=== PATIENT | male | born 1975 | race Caucasian/White ===

== ENCOUNTER 2020-04-13 08:05 | Outpatient (CLI) | payer BC | END 2020-04-13 23:59 | disposition home or self-care (01) | LOC: CVU 08:05 | PROVIDERS: ATTEND Internal Medicine Cardiovascular Disease | DX: I08.8 Other rheumatic multiple valve diseases (principal) | CPT/HCPCS: 93306; 93356; 94060; 94726; 94729 ==

== ENCOUNTER 2020-06-14 01:34 | Emergency (ER) | payer BC ==
[~2020-06-14] VITALS: Ht 190.5 cm; Wt 104.1 kg
--- NOTE | 2020-06-14 01:41 | NUR ---
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
--- NOTE | 2020-06-14 02:45 | NUR ---
PT TO ROOM AT 0375
[2020-06-14] MEDS ORDERED: ASPIRIN 81 MG TABLET CHEW ONE (02:52)
[2020-06-14] MEDS ORDERED: ASPIRIN 81 MG TABLET CHEW PO ONE (03:30)
[2020-06-14 03:38] LABS: BASOPHILS # (AUTO) 0.04 x10^3/uL (0-0.1); BASOPHILS % (AUTO) 1 % (0-1); EOSINOPHILS # (AUTO) 0.27 x10^3/uL (0-0.4); EOSINOPHILS % (AUTO) 4 % (1-7); LYMPHOCYTES # (AUTO) 2.57 x10^3/uL (1-3.4); LYMPHOCYTES % (AUTO) 33 % (22-44); MD NO; MEAN CORPUSCULAR HEMOGLOBIN 30.4 pg (27.5-34.5); MEAN CORPUSCULAR HGB CONC 33.5 g/dL (33.2-36.2); MEAN CORPUSCULAR VOLUME 90.9 fL (81-97); MONOCYTES # (AUTO) 0.47 x10^3/uL (0.2-0.8); MONOCYTES % (AUTO) 6 % (2-9); NEUTROPHILS # (AUTO) 4.46 x10^3/uL (1.8-6.8); NEUTROPHILS % (AUTO) 57 % (42-75); PLATELET COUNT 241 x10^3/uL (130-400); RED BLOOD COUNT 5.83 x10^6/uL (4.38-5.82); RED CELL DISTRIBUTION WIDTH 13.7 % (9.4-14.8)
--- NOTE | 2020-06-14 03:38 | NUR ---
PT SITTING IN BED, REMAINS CONNECTED TO CARDIAC, BP AND O2 MONITORS. NO SIGNS OF ACUTE DISTRESS, WATCHING TV WITH HIS AT BEDSIDE. CALL LIGHT REMAINS IN REACH.
[2020-06-14 03:45] LABS: ALBUMIN 4.9 g/dL (3.4-5.0); ANION GAP 7 mmol/L (5-15); CALCIUM 9.7 mg/dL (8.5-10.1); CHLORIDE 104 mmol/L (98-107); CREATININE 1.13 mg/dL (0.7-1.3)
[2020-06-14 03:49] LABS: TROPONIN I < 0.015 ng/mL (0.000-0.045)
--- NOTE | 2020-06-14 04:18 | NUR ---
PT CONDITION UNCHANGED. NO SIGNS OF ACUTE DISTRESS. WILL CONITNUE TO MONITOR.
--- NOTE | 2020-06-14 04:43 | NUR ---
ERP BACK TO BEDSIDE TO UPDATE PT ON POC.
--- NOTE | 2020-06-14 04:59 | NUR ---
PT AMBULATORY AROUND UNIT, DENIES ANY CP DURING EXERTION.
[2020-06-14 05:00] VITALS: BP 136/64
== END 2020-06-14 05:28 | disposition home or self-care (01) ==
LOC: ED 04:59
DX: R07.89 Other chest pain (principal); R06.02 Shortness of breath; R94.31 Abnormal electrocardiogram [ECG] [EKG]
CPT/HCPCS: 36415; 71045; 80048; 82040; 83880; 84484; 85025; 85379; 93005; 99285

== ENCOUNTER 2020-08-05 07:56 | Day surgery (SDC) | payer BC ==
[~2020-08-05] VITALS: Ht 190.5 cm; Wt 102.3 kg
[2020-08-05 08:30] VITALS: BP 130/75
[2020-08-05] MEDS ORDERED: UBID100C41 PO (08:30)
[2020-08-05] MEDS ORDERED: FISH1CAP PO (08:30)
[2020-08-05] MEDS ORDERED: ASPI81TA45 PO (08:30)
[2020-08-05] MEDS ORDERED: VALA500T4 PO (08:30)
[2020-08-05] MEDS ORDERED: MULT-658 PO (08:30)
[2020-08-05 08:54] LABS: INTERNATIONAL NORMALIZED RATIO 1.11 (0.93-1.1); PROTHROMBIN TIME 11.4 Seconds (9.6-11.5)
[2020-08-05 08:57] LABS: CALCIUM 9.1 mg/dL (8.5-10.1); CHLORIDE 109 mmol/L (98-107); CREATININE 1.19 mg/dL (0.7-1.3)
[2020-08-05] MEDS ORDERED: MIDAZOLAM 1 MG/ML, 2ML ONE (08:57)
[2020-08-05] MEDS ORDERED: VERAPAMIL 2.5 MG/ML, 2ML ONE (08:57)
[2020-08-05] MEDS ORDERED: HEPARIN 1,000 UNITS/ML, 10ML ONE (08:57)
[2020-08-05] MEDS ORDERED: FENTANYL PF 100 MCG/2ML ONE (08:57)
[2020-08-05] MEDS ORDERED: LIDOCAINE-MPF 1%, 5ML ONE (08:58)
[2020-08-05] MEDS ORDERED: NITROGLYCERIN 30 MCG/ML, 20ML VIAL ONE (08:58)
[2020-08-05 09:06] LABS: BASOPHILS % (AUTO) 1 % (0-1); EOSINOPHILS % (AUTO) 1 % (1-7); LYMPHOCYTES % (AUTO) 32 % (22-44); MEAN CORPUSCULAR HEMOGLOBIN 30.3 pg (27.5-34.5); MEAN CORPUSCULAR HGB CONC 34.1 g/dL (33.2-36.2); MEAN PLATELET VOLUME 8.7 fL (7.4-10.4); MONOCYTES % (AUTO) 8 % (2-9); NEUTROPHILS % (AUTO) 58 % (42-75); PLATELET COUNT 229 x10^3/uL (130-400); RED BLOOD COUNT 5.42 x10^6/uL (4.38-5.82); RED CELL DISTRIBUTION WIDTH 13.5 % (9.4-14.8)
[2020-08-05 09:10] LABS: ANION GAP 5 mmol/L (5-15)
[2020-08-05 09:39] LABS: MD NO
[2020-08-05] MEDS ORDERED: SODIUM CHLORIDE 0.9% 1,000 ML IV SCH (10:30)
== END 2020-08-05 11:59 | disposition home or self-care (01) ==
LOC: CACL 07:56
PROVIDERS: ATTEND Internal Medicine Cardiovascular Disease
DX: Q23.1 Congenital insufficiency of aortic valve (principal); Z79.82 Long term (current) use of aspirin; Z79.899 Other long term (current) drug therapy; Z91.030 Bee allergy status
CPT/HCPCS: 36415; 80048; 85025; 85610; 93458; 99156; C1769; C1894; J1644; J2250; J3010; Q9967

== ENCOUNTER 2020-09-27 00:41 | Emergency (ER) | payer BC ==
[~2020-09-27] VITALS: Ht 190.5 cm; Wt 99.9 kg
[~2020-09-27 00:41] MED LIST changes: -PANT40TA6 PO; -metoprolol tartrate PO; -senna; -warfarin PO
[2020-09-27] MEDS ORDERED: metoprolol tartrate PO (01:20)
[2020-09-27] MEDS ORDERED: PANT40TA6 PO (01:22)
[2020-09-27] MEDS ORDERED: warfarin PO (01:25)
[2020-09-27] MEDS ORDERED: senna (01:25)
--- NOTE | 2020-09-27 01:26 | NUR ---
BREAK RN: PT RESTING IN ROOM. REGULAR RESP. NO ACUTE DISTRESS NOTED. PROJECTION TECHNICIAN HYDRO GENERATION SUPERVISOR LIGHT IN PLACE. WILL CONTINUE TO MONITOR.
[2020-09-27] MEDS ORDERED: SODIUM CHLORIDE FLUSH 10ML SYR IVF ONE (01:30)
[2020-09-27 01:53] LABS: BASOPHILS % (AUTO) 0 % (0-1); EOSINOPHILS % (AUTO) 1 % (1-7); LYMPHOCYTES % (AUTO) 15 % (22-44); MEAN CORPUSCULAR HEMOGLOBIN 29.9 pg (27.5-34.5); MEAN CORPUSCULAR HGB CONC 33.3 g/dL (33.2-36.2); MEAN PLATELET VOLUME 8.5 fL (7.4-10.4); MONOCYTES % (AUTO) 13 % (2-9); NEUTROPHILS % (AUTO) 72 % (42-75); PLATELET COUNT 352 x10^3/uL (130-400); RED BLOOD COUNT 4.62 x10^6/uL (4.38-5.82)
[2020-09-27 02:00] LABS: ALANINE AMINOTRANSFERASE 46 U/L (12-78); ANION GAP 5 mmol/L (5-15); CHLORIDE 105 mmol/L (98-107); CREATININE 0.98 mg/dL (0.7-1.3)
[2020-09-27 02:03] LABS: INTERNATIONAL NORMALIZED RATIO 2.31 (0.93-1.1); PROTHROMBIN TIME 24.3 Seconds (9.6-11.5)
[2020-09-27 02:10] LABS: ALKALINE PHOSPHATASE 65 U/L (45-117); BILIRUBIN,TOTAL 0.7 mg/dL (0.2-1.0); T4 (THYROXINE) 9.9 mcg/dL (4.5-12.1); TOTAL PROTEIN 7.8 g/dL (6.4-8.2); TROPONIN I < 0.015 ng/mL (0.000-0.045)
[2020-09-27 02:29] LABS: MD SCAN
--- NOTE | 2020-09-27 02:39 | NUR ---
LATE ENTRY SUMMARY NOTE: PT HAD MECHANICAL VALUE PLACED ON 08/31 AT [facility]. PT NOW FEELING HIS "HEART SKIP A BEAT." MURMUR CAN BE HEARD ON ASCULTATION. PT STATES NORMALLY HIS RESTING HR IS IN THE 70S, HOWEVER HERE HIS RESTING HR IS IN THE 90S. ERP MADE AWARE OF THIS FINDING. PT'S SURGICAL WOUNDS WITH NO SIGNS OF INFECTION, WELL APPROXIMATED. PT CONNECTED TO ALL MONITORS, RESPIRATIONS EVEN AND UNLABORED, NADN. CALL LIGHT AND CELL PHONE IN REACH.
--- NOTE | 2020-09-27 04:10 | NUR ---
PT AMBULATORY TO BATHROOM, STEADY GAIT. PROVIDED WITH WATER AT REQUEST AND ERP OKAY.
--- NOTE | 2020-09-27 05:06 | NUR ---
THIS RN CALLED LAB TO INQUIRE ABOUT TROPONIN DRAW.
[2020-09-27] MEDS ORDERED: POTASSIUM CHLORIDE 20 MEQ TAB.ER.PRT ONE (05:22)
[2020-09-27 05:30] LABS: TROPONIN I < 0.015 ng/mL (0.000-0.045)
[2020-09-27] MEDS ORDERED: POTASSIUM CHLORIDE 20 MEQ TAB.ER.PRT PO ONE (05:30)
[2020-09-27 05:39] VITALS: BP 112/76
== END 2020-09-27 05:44 | disposition home or self-care (01) ==
LOC: ED 05:33
DX: R07.2 Precordial pain (principal); R00.2 Palpitations; I21.9 Acute myocardial infarction, unspecified; I51.7 Cardiomegaly; R94.31 Abnormal electrocardiogram [ECG] [EKG]; I49.3 Ventricular premature depolarization; Z95.828 Presence of other vascular implants and grafts
CPT/HCPCS: 36415; 71045; 80053; 83735; 83880; 84436; 84443; 84484; 85025; 85610; 85730; 93005; 99285

== ENCOUNTER → 2020-09-27 | Outpatient (CLI) | payer BC ==
[~2020-09-27] MED LIST: ASPI81TA45 PO; FISH1CAP PO; MULT-658 PO; PANT40TA6 PO; UBID100C41 PO; VALA500T4 PO; metoprolol tartrate PO; senna; warfarin PO
== END | disposition home or self-care (01) ==
LOC: CVU 07:37
PROVIDERS: ATTEND Nurse Practitioner Family
DX: I51.7 Cardiomegaly (principal); I31.3 Pericardial effusion (noninflammatory); Z95.2 Presence of prosthetic heart valve
CPT/HCPCS: 93306

== ENCOUNTER 2020-10-01 00:56 | Emergency (ER) | payer BC ==
[~2020-10-01] VITALS: Ht 190.5 cm; Wt 55.0 kg
[~2020-10-01 00:56] MED LIST changes: +PANT40TA6 PO; +metoprolol tartrate PO; +senna; +warfarin PO
--- NOTE | 2020-10-01 01:15 | NUR ---
PT BIBA. PER EMS PT IS IN AFIB AND HAS HAD THREE "EPISODES" OF AFIB THIS WEEK. PT ALSO REPORTS HE WAS AT [facility] FOR SAME COMPLAINT A COUPLE DAYS AGO. EKG DONE. PT ON CARDIAC MONITORING AND CONT PULSE OX. NAD NOTED AT THIS TIME, WILL CONTINUE TO MONITOR. AT .
--- NOTE | 2020-10-01 01:45 | NUR ---
REPORT GIVEN TO FRANTZ COOK.
[2020-10-01 02:01] LABS: BASOPHILS % (AUTO) 1 % (0-1); EOSINOPHILS % (AUTO) 2 % (1-7); LYMPHOCYTES % (AUTO) 18 % (22-44); MEAN CORPUSCULAR HGB CONC 34.1 g/dL (33.2-36.2); MONOCYTES % (AUTO) 11 % (2-9); NEUTROPHILS % (AUTO) 68 % (42-75); PLATELET COUNT 274 x10^3/uL (130-400); RED BLOOD COUNT 4.34 x10^6/uL (4.38-5.82); RED CELL DISTRIBUTION WIDTH 13.7 % (9.4-14.8)
[2020-10-01 02:10] LABS: MD NO
[2020-10-01 02:17] LABS: ALBUMIN 3.4 g/dL (3.4-5.0); ANION GAP 6 mmol/L (5-15); CALCIUM 8.4 mg/dL (8.5-10.1); CHLORIDE 109 mmol/L (98-107); CREATININE 0.87 mg/dL (0.7-1.3)
[2020-10-01 02:21] LABS: TROPONIN I < 0.015 ng/mL (0.000-0.045)
[2020-10-01] MEDS ORDERED: DILTIAZEM 5 MG/ML, 5ML IVPush ONE (03:30)
[2020-10-01] MEDS ORDERED: DILTIAZEM 5 MG/ML, 5ML ONE (03:30)
[2020-10-01 03:51] LABS: INTERNATIONAL NORMALIZED RATIO 2.84 (0.93-1.1); PROTHROMBIN TIME 29.8 Seconds (9.6-11.5)
[2020-10-01] MEDS ORDERED: METOPROLOL 1 MG/ML, 5ML ONE (04:14)
[2020-10-01] MEDS ORDERED: METOPROLOL 1 MG/ML, 5ML IVPush ONE (04:30)
[2020-10-01 06:53] VITALS: BP 120/77
== END 2020-10-01 06:57 | disposition home or self-care (01) ==
LOC: ED 01:37
DX: I48.0 Paroxysmal atrial fibrillation (principal); R00.2 Palpitations; I21.9 Acute myocardial infarction, unspecified; R94.31 Abnormal electrocardiogram [ECG] [EKG]; Z79.01 Long term (current) use of anticoagulants; Z95.4 Presence of other heart-valve replacement
CPT/HCPCS: 36415; 71045; 80048; 82040; 83735; 84484; 85025; 85610; 93005; 96374; 96375; 99285

== ENCOUNTER → 2020-12-22 | Outpatient (CLI) | payer BC | END | disposition home or self-care (01) | LOC: CVU 07:17 | PROVIDERS: ATTEND Internal Medicine Cardiovascular Disease | DX: I51.7 Cardiomegaly (principal); R42 Dizziness and giddiness | CPT/HCPCS: 93306 ==

== ENCOUNTER → 2021-05-15 | Outpatient (CLI) | payer BC | END | disposition home or self-care (01) | LOC: CFH 12:24 | PROVIDERS: ATTEND Nurse Practitioner Family | DX: I37.1 Nonrheumatic pulmonary valve insufficiency (principal); I51.7 Cardiomegaly; Z95.2 Presence of prosthetic heart valve | CPT/HCPCS: 93306; 93356 ==